=== PATIENT | male | born 1990 | race Caucasian/White ===

== ENCOUNTER 2017-02-20 13:27 | Emergency (ER) | payer OTHER ==
[~2017-02-20 13:27] MED LIST: ACETAMINOPHEN PO; BACTRIM DS TABL1 TAB PO; IBUPROFEN PO; TYLOX1 CAP 5/50 PO
[2017-02-20] MEDS ORDERED: NO MEDICATIONS (13:28)
== END 2017-02-20 14:40 | disposition home or self-care (01) ==
LOC: SED 13:27
DX: S01.81XA Laceration without foreign body of other part of head, initial encounter (principal); Z23 Encounter for immunization; W22.8XXA Striking against or struck by other objects, initial encounter; Y92.410 Unspecified street and highway as the place of occurrence of the external cause
CPT/HCPCS: 12011; 90471; 90715; 99283